=== PATIENT | male | born 1945 | race Hispanic/Latino ===

== ENCOUNTER 2020-12-29 12:54 | Outpatient (AMBR) | payer MEDICARE, MEDICAID, SELFPAY ==
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
--- NOTE | 2020-12-23 17:12 | PTNOTE_ITS ---
PT Outpatient Daily Note Date of Service: 12/23/20 OP Daily Note Visit Reasons: cervicalgia/back pain Outpatient Physical Therapy Treatment Date: 12/23/20 Subjective: Same as time of evaluation Objective: SEe F/S for therex MT: STM upper traps and CTJ region x10' Mechanical traction C/S x7' at 14 lbs Assessment: Increased myofascial tightness of B upper traps and CTJ region with mild TTP during manual therapy today. Good response to C/s traction. Plan: Continue per POC Length of Time (minutes) of Treatment: 30 Minutes Office Procedures PT Procedures PT Date of Service: 12/20/20 OP PT Eval Mod Complex 30 minutes: Yes PT Procedures PT Date of Service: 12/23/20 Therapeutic Exercise 15 minutes: Yes Manual University Relations Recruiter 15 minutes: Yes
--- NOTE | 2020-12-27 19:15 | PT.ODAYNRPT ---
PT Outpatient Daily Note Date of Service: 12/27/20 OP Daily Note Visit Reasons: cervicalgia/back pain Outpatient Physical Therapy Treatment Date: 12/27/20 Subjective: Same as time of evaluation Objective: SEe F/S for therex MT: STM upper traps and CTJ region x10' Mechanical traction C/S x7' at 14 lbs Assessment: Increased myofascial tightness of B upper traps and CTJ region with mild TTP during manual therapy today. Good response to C/s traction. Plan: Continue per POC Length of Time (minutes) of Treatment: 30 Minutes Office Procedures PT Procedures PT Date of Service: 12/20/20 OP PT Eval Mod Complex 30 minutes: Yes PT Procedures PT Date of Service: 12/23/20 Therapeutic Exercise 15 minutes: Yes Manual Chief Bank Examiner 15 minutes: Yes PT Procedures PT Date of Service: 12/27/20 Therapeutic Exercise 15 minutes: Yes Manual Chief Bank Examiner 15 minutes: Yes
--- NOTE | 2020-12-29 13:46 | PT.ODAYNRPT ---
PT Outpatient Daily Note Date of Service: 12/29/20 OP Daily Note Visit Reasons: cervicalgia/back pain Outpatient Physical Therapy Treatment Date: 12/29/20 Subjective: Same as time of evaluation Objective: See F/S for therex MT: STM upper traps and CTJ region and prone C1-2 PA's x10' total Assessment: Increased myofascial tightness of B upper traps and suboccipital region with mild TTP during manual therapy today. Good response to manual therapy to C1-2 Pa's. C1-2 is very limited along with OA sidebending. Plan: Continue per POC Length of Time (minutes) of Treatment: 30 Minutes Office Procedures PT Procedures PT Date of Service: 12/20/20 OP PT Eval Mod Complex 30 minutes: Yes PT Procedures PT Date of Service: 12/29/20 Therapeutic Exercise 15 minutes: Yes Manual Yard Loader Operator 15 minutes: Yes PT Procedures PT Date of Service: 12/23/20 Therapeutic Exercise 15 minutes: Yes Manual Yard Loader Operator 15 minutes: Yes PT Procedures PT Date of Service: 12/27/20 Therapeutic Exercise 15 minutes: Yes Manual Yard Loader Operator 15 minutes: Yes
== END 2021-01-14 23:59 | disposition home or self-care (01) ==
PROVIDERS: PCP Nurse Practitioner Family; Referring Provider Nurse Practitioner Family; Visit Provider Nurse Practitioner Family
DX: M54.5 Low back pain (principal); M54.2 Cervicalgia; I10 Essential (primary) hypertension
CPT/HCPCS: 97110; 97140; 97162

== ENCOUNTER 2021-01-30 11:31 | Outpatient (AMBR) | payer MEDICARE, MEDICAID, SELFPAY ==
--- NOTE | 2021-01-30 12:36 | PTNOTE_ITS ---
PT OP Progress/Discharge Note Date of Service: 01/30/21 Progress Note/DC Note Progress Note/Discharge Note: Progress Note Patient Information Visit Reasons: cervicalgia/back pain Service Continue Service or Discharge: Continue Service Status Subjective: Pt returns to therapy after a 4 week break and reports his neck f eels tight. It had been feeling better after therapy visits. Objective: C/S AROM: L rotation: 45 deg, R 45 deg Extension: 35 deg Flexion: full TTP: min of lower C/S, UT's Assessment: Pt has attended the evaluation and 4 Rx visits and made slow progress with C/S AROM but the area is less TTP since starting therapy. Pt would benefit from continued therapy in order to improve C/S ArOM. Plan: Continue per POC Office Procedures PT Procedures PT Date of Service: 01/30/21 Therapeutic Exercise 15 minutes: Yes Manual Aircraft Life Support Fitter 15 minutes: Yes
--- NOTE | 2021-06-01 11:13 | PT.ODS1RPT ---
PT OP Progress/Discharge Note Date of Service: 05/28/21 Progress Note/DC Note Progress Note/Discharge Note: DC Note Patient Information Visit Reasons: cervicalgia/back pain Service Continue Service or Discharge: Discharge Discharge Date: 06/01/21 Status Assessment: Pt attended the initial evaluation and 5 Rx visits and never returned or called to schedule a follow-up appointment within the past 30 days. Pt?s attendance is not consistent enough to make progress with goals. Pt will be D/C'd according to non-compliance with attendance policy. Plan: D/C Office Procedures PT Treatments PT Date of Service: 01/30/21 Therapeutic Exercise 15 minutes: Yes Manual Furs Salesperson 15 minutes: Yes
== END 2021-02-14 23:59 | disposition home or self-care (01) ==
PROVIDERS: PCP Nurse Practitioner Family; Referring Provider Nurse Practitioner Family; Visit Provider Nurse Practitioner Family
DX: M54.2 Cervicalgia (principal); M54.5 Low back pain; I10 Essential (primary) hypertension; V89.2XXD Person injured in unspecified motor-vehicle accident, traffic, subsequent encounter
CPT/HCPCS: 97110; 97140